=== PATIENT | female | born 1970 | race Caucasian/White ===

== ENCOUNTER 2017-09-12 15:46 | Emergency (ER) | payer BC ==
[2017-09-12 16:02] VITALS: BP 186/90
--- NOTE | 2017-09-12 16:50 | UC ---
Sheila Vásquez Thomas, scribed for Devin Conn MD on 09/12/17 at 1632 . General HPI - HPI Summary HPI Summary: The patient is a 47 year old female who noticed that her face was flushed and she had hives on her chest and upper extremities. She does not have a history of allergic reaction, but this morning she ate a different kind of bagel and cream cheese. Right after, she developed shakiness and facial flushing. She denies tongue swelling, lip swelling, or any other complaints. The patient went out to go for a walk, and her symptoms did not get any better, so she decided to come to urgent care. - History of Current Complaint Chief Complaint: UCGeneralIllness Stated Complaint: FLUSHED, WARM AND SHAKEY Time Seen by Provider: 09/12/17 16:17 Hx Obtained From: Patient Hx Last Menstrual Period: now Onset/Duration: Lasting Hours, Still Present Timing: Constant Pain Intensity: 0 Associated Signs & Symptoms: Positive: Other - Facial flushing, hives, shakiness ; NEGATIVE: tongue swelling, lip swelling - Allergy/Home Medications Allergies/Adverse Reactions: Allergies Allergy/AdvReac Type Severity Reaction Status Date / Time No Known Allergies Allergy Verified 09/12/17 16:02 Home Medications: Home Medications raNITIdine HCl [Zantac 75] 75 mg PO DAILY 09/12/17 [History Confirmed 09/12/17] PMH/Surg Hx/FS Hx/Imm Hx Previously Healthy: No - NEGATIVE: HI, DM - Surgical History Surgical History: None - Family History Known Family History: Negative: Blood Disorder - Social History Alcohol Use: Occasionally Substance Use Type: None Smoking Status (MU): Former Smoker Review of Systems Skin: Other - Facial fluishing, hives ENT: Negative - tongue swelling, lip swelling Neurovascular: Other - Shakiness Is Patient Immunocompromised?: No All Other Systems Reviewed And Are Negative: Yes Physical Exam - Summary Physical Exam Summary: VITAL SIGNS: Reviewed. GENERAL: Patient is a well-developed and nourished female who is lying comfortable in the stretcher. Patient is not in any acute respiratory distress. HEAD AND FACE: Normocephalic. She has a flushed face. EYES: PERRLA, EOMI x 2. EARS: Hearing grossly intact. MOUTH: Oropharynx within normal limits. NECK: Supple, trachea is midline, no adenopathy, no JVD, no carotid bruit. CHEST: Symmetric, no tenderness at palpation LUNGS: Clear to auscultation bilaterally. No wheezing or crackles. CVS: Regular rate and rhythm, S1 and S2 present, no murmurs or gallops appreciated. ABDOMEN: Soft, non-tender. Bowel sounds are normal. No abdominal abnormal pulsations. EXTREMITIES: Full ROM in all major joints, no edema, no cyanosis or clubbing. NEURO: Alert and oriented x 3. No acute neurological deficits. Speech is normal and follows commands. SKIN: She has a flushed face. She has some hives on her chest and upper extremities. Triage Information Reviewed: Yes Vital Signs: Initial Vital Signs Temp 97.7 F 09/12/17 15:58 Pulse 74 09/12/17 15:58 Resp 20 09/12/17 15:58 BP 186/90 09/12/17 15:58 Pulse Ox 100 09/12/17 15:58 Vital Signs Reviewed: Yes Course/Dx - Course Course Of Treatment: The patient is a 47 year old female who noticed that her face was flushed and she had hives on her chest and upper extremities. She does not have a history of allergic reaction, but this morning she ate a different kind of bagel and cream cheese. Right after, she developed shakiness and facial flushing. She denies tongue swelling, lip swelling, or any other complaints. The patient went out to go for a walk, and her symptoms did not get any better, so she decided to come to urgent care. I believe that the patient has a localized allergic reaction of unknown origin. The patient was given a prescription for Bendadryl and prednisone. I discussed all the findings and test results with the patient. Patient was instructed to return to the urgent care or go to ER immediately if any of the symptoms return or worsen. Plan of care was discussed with the patient, and patient understands and agrees. All questions were answered to patient satisfaction. There were no further complaints or concerns. - Differential Dx - Multi-Symptom Provider Diagnoses: Localized allergic reaction of unknown origin Discharge - Sign-Out/Discharge Documenting (check all that apply): Discharge - Discharge Plan Condition: Stable Disposition: HOME Prescriptions: diPHENhydraMINE PO* [Benadryl PO 25 MG TAB*] 25 mg PO TID PRN #30 tab PRN Reason: Allergy Symptoms predniSONE TAB* [Deltasone TAB*] 20 mg PO DAILY #5 tab Patient Education Materials: General Allergic Reaction (ED) Referrals: Hemant Navarro MD [Primary Care Provider] - Additional Instructions: Take medications as instructed Increase your fluid intake Return to the UC if symptoms worsen The documentation as recorded by the Sheila pavon Thomas accurately reflects the service I personally performed and the decisions made by , Devin Conn MD.
== END 2017-09-12 16:34 | disposition home or self-care (01) ==
LOC: UCEAST 15:46
DX: L50.9 Urticaria, unspecified (principal); R23.2 Flushing; R25.1 Tremor, unspecified; T78.40XA Allergy, unspecified, initial encounter; X58.XXXA Exposure to other specified factors, initial encounter; Z87.891 Personal history of nicotine dependence
CPT/HCPCS: 99212; G0463